=== PATIENT | female | born 1965 | race Caucasian/White ===

== ENCOUNTER 2016-10-23 17:22 | Emergency (ER) | payer SELFPAY ==
[2016-10-23] MEDS ORDERED: Dexamethasone 20 MG/5 ML VIAL ONE (17:51)
[2016-10-23] MEDS ORDERED: Azithromycin 500 MG VIAL ONE (17:51)
[2016-10-23] MEDS ORDERED: Azithromycin 250 MG TAB ONE (17:52)
--- NOTE | 2016-10-23 18:42 | RAD ---
CHEST TWO VIEWS: 10/23/16 HISTORY: Cough and congestion. COMPARISON: 09/15/15. FINDINGS: The cardiac silhouette is unremarkable. Pulmonary vasculature remains upper limits of normal. Medias tinum is midline. There is no confluent air space consolidation, pneumothorax, or pleural fluid evid ent. IMPRESSION: No active cardiopulmonary abnormalities are demonstrated. POS: [facility]
== END 2016-10-23 18:10 | disposition home or self-care (01) ==
LOC: NAV ERS 17:22
DX: J40 Bronchitis, not specified as acute or chronic (principal); I10 Essential (primary) hypertension; E66.9 Obesity, unspecified; F41.9 Anxiety disorder, unspecified; F17.210 Nicotine dependence, cigarettes, uncomplicated; Z79.899 Other long term (current) drug therapy
CPT/HCPCS: 71020; 94640; 96372; J0456; J1100; J7620

== ENCOUNTER 2017-04-19 01:51 | Emergency (ER) | payer OTHER, SELFPAY ==
[2017-04-19] MEDS ORDERED: Acetaminophen 500 MG TAB ONE (02:22)
== END 2017-04-19 02:26 | disposition home or self-care (01) ==
LOC: NAV ERS 01:51
DX: K04.7 Periapical abscess without sinus (principal); I10 Essential (primary) hypertension; K02.9 Dental caries, unspecified; E66.9 Obesity, unspecified; F41.9 Anxiety disorder, unspecified; F17.210 Nicotine dependence, cigarettes, uncomplicated
CPT/HCPCS: 99283

== ENCOUNTER 2017-04-22 18:19 | Emergency (ER) | payer OTHER ==
[2017-04-22] MEDS ORDERED: Ketorolac Tromethamine 30 MG/ML VIAL ONE (19:02)
[2017-04-22] MEDS ORDERED: Ondansetron ODT 4 MG TAB ONE (19:02)
== END 2017-04-22 19:26 | disposition home or self-care (01) ==
LOC: NAV ERS 18:19
DX: K04.7 Periapical abscess without sinus (principal); I10 Essential (primary) hypertension; E66.9 Obesity, unspecified; F17.210 Nicotine dependence, cigarettes, uncomplicated; Z79.899 Other long term (current) drug therapy; Z79.1 Long term (current) use of non-steroidal anti-inflammatories (NSAID)
CPT/HCPCS: 96372; J1885; Q0162

== ENCOUNTER 2018-03-08 14:27 | Emergency (ER) | payer OTHER | END 2018-03-08 15:13 | disposition home or self-care (01) | LOC: NAV ERS 14:27 | DX: S29.011A Strain of muscle and tendon of front wall of thorax, initial encounter (principal); I10 Essential (primary) hypertension; E66.9 Obesity, unspecified; F17.210 Nicotine dependence, cigarettes, uncomplicated; F41.9 Anxiety disorder, unspecified; Z79.899 Other long term (current) drug therapy; X58.XXXA Exposure to other specified factors, initial encounter | CPT/HCPCS: 99283 ==

== ENCOUNTER 2018-07-13 19:51 | Emergency (ER) | payer OTHER, SELFPAY ==
[2018-07-13] MEDS ORDERED: HYDROcodone/Acetaminophen 5/325 mg Tablet ONE (21:09)
--- NOTE | 2018-07-13 21:27 | RAD ---
RIGHT KNEE FOUR VIEWS: HISTORY: Right knee pain, swollen for four to five days. TECHNIQUE: AP, lateral, and both oblique views of the right knee obtained. FINDINGS: Four views of the right knee demonstrate no evidence of right knee fractures, subluxations, or bony l esions. IMPRESSION: Normal four views right knee. POS: [facility]
== END 2018-07-13 21:55 | disposition home or self-care (01) ==
LOC: NAV ERS 19:51
DX: S83.91XA Sprain of unspecified site of right knee, initial encounter (principal); F17.210 Nicotine dependence, cigarettes, uncomplicated; J45.909 Unspecified asthma, uncomplicated; I10 Essential (primary) hypertension; F41.9 Anxiety disorder, unspecified; Z79.899 Other long term (current) drug therapy; Z79.51 Long term (current) use of inhaled steroids; X50.1XXA Overexertion from prolonged static or awkward postures, initial encounter

== ENCOUNTER 2019-02-14 12:18 | Emergency (ER) | payer OTHER, SELFPAY ==
[2019-02-14] MEDS ORDERED: Adacel (T-DAP) 0.5 ML SYRINGE ONE (13:38)
--- NOTE | 2019-02-14 13:48 | RAD ---
XR Tib Fib Lt Leg 2 View HISTORY: Left leg pain, injury COMPARISON: None. FINDINGS: The left tibia and fibula appear intact.
--- NOTE | 2019-02-14 13:49 | RAD ---
XR Ankle Lt 3 View STANDARD HISTORY: Injury, left ankle pain FINDINGS: No fracture or dislocation is identified. The ankle mortise is maintained. Posterior and plantar calc aneal spurs are present.
--- NOTE | 2019-02-14 13:49 | RAD ---
XR Knee Lt 4 View STANDARD HISTORY: Injury, left knee pain FINDINGS: No fracture or dislocation is identified.
[2019-02-14] MEDS ORDERED: Ondansetron ODT 4 MG TAB ONE (13:50)
--- NOTE | 2019-02-14 13:51 | RAD ---
XR Foot Lt 3 View STANDARD HISTORY: Injury, left foot pain FINDINGS: No fracture or dislocation is identified. Posterior and plantar calcaneal spurs are present.
[2019-02-14] MEDS ORDERED: HYDROcodone/Acetaminophen 5/325 mg Tablet ONE (14:00)
[2019-02-14] MEDS ORDERED: Bacitracin 1 PK ONE ×2 (14:00→14:22)
== END 2019-02-14 14:50 | disposition home or self-care (01) ==
LOC: NAV ERS 12:18
DX: S83.92XA Sprain of unspecified site of left knee, initial encounter (principal); S93.402A Sprain of unspecified ligament of left ankle, initial encounter; S93.602A Unspecified sprain of left foot, initial encounter; K21.9 Gastro-esophageal reflux disease without esophagitis; I10 Essential (primary) hypertension; F41.9 Anxiety disorder, unspecified; F17.210 Nicotine dependence, cigarettes, uncomplicated; Z79.899 Other long term (current) drug therapy; W19.XXXA Unspecified fall, initial encounter
CPT/HCPCS: 90471; 90715; Q0162

== ENCOUNTER 2019-09-24 17:08 | Emergency (ER) | payer SELFPAY ==
[2019-09-24 17:58] LABS: #Basophils 0.1 thou/uL (0.0-0.2); #Eosinphils 0.3 thou/uL (0.0-0.7); #Lymphocytes 1.7 thou/uL (1.20-3.40); #Monocytes 0.6 thou/uL (0.11-0.59); #Neutrophils 7.1 thou/uL (1.40-6.50); %Basophils 1.1 % (0.0-1.0); %Eosinophils 2.9 % (0.0-10.0); %Lymphocytes 17.3 % (21.0-51.0); %Monocytes 5.7 % (0.0-10.0); %Neutrophils 73.1 % (42.0-75.0); Hemoglobin 14.2 g/dL (12.0-16.0); Mean Corpuscular HGB CONC 31.1 g/dL (32.0-36.0); Mean Corpuscular Hemoglobin 29.8 pg (27.0-31.0); Mean Corpuscular Volume 95.6 fL (78.0-98.0); Mean Platelet Volume 11.3 fL (7.4-10.4); Platelet Count 208 thou/uL (130-400); RBC Distribution Width 13.4 % (11.5-14.5); Red Blood Cell (RBC) Count 4.76 mill/uL (4.20-5.40); White Blood Cell (WBC) Count 9.7 thou/uL (4.8-10.8)
[2019-09-24 18:14] LABS: ALT (SGPT) 26 U/L (8-55); AST (SGOT) 18 U/L (5-34); Albumin 3.7 g/dL (3.5-5.0); Alkaline Phosphatase 73 U/L (40-110); Anion Gap 13 mmol/L (10-20); BUN (Urea Nitrogen) 11 mg/dL (9.8-20.1); Bilirubin, Total 0.2 mg/dL (0.2-1.2); Calc. Creatinine Clearance 0 mL/min (70-130); Calcium 8.8 mg/dL (7.8-10.44); Carbon Dioxide 25 mmol/L (22-29); Chloride 104 mmol/L (98-107); Estimated GFR-MDRD 73; Globulin 3.2 g/dL (2.4-3.5); Glucose 133 mg/dL (70-105); Potassium 3.9 mmol/L (3.5-5.1); Protein, Total 6.9 g/dL (6.0-8.3); Sodium 138 mmol/L (136-145)
[2019-09-24] MEDS ORDERED: methylPREDNISolone Sod Succ/PF 125 MG/2 ML VIAL ONE (18:38)
[2019-09-24] MEDS ORDERED: Furosemide 20 MG/2 ML VIAL ONE (18:38)
[2019-09-24] MEDS ORDERED: Lisinopril 20 MG TAB ONE (18:38)
[2019-09-24] MEDS ORDERED: Ketorolac Tromethamine 30 MG/ML VIAL ONE (19:29)
== END 2019-09-24 20:56 | disposition short-term general hospital (02) ==
LOC: NAV ERS 17:08
DX: M79.89 Other specified soft tissue disorders (principal); R79.89 Other specified abnormal findings of blood chemistry; K21.9 Gastro-esophageal reflux disease without esophagitis; I10 Essential (primary) hypertension; F17.210 Nicotine dependence, cigarettes, uncomplicated; F41.9 Anxiety disorder, unspecified; Z79.899 Other long term (current) drug therapy
CPT/HCPCS: 36416; 80053; 83880; 84484; 85025; 85379; 93005; 96374; 96375; J1885; J1940; J2930